=== PATIENT | female | born 1995 | race Caucasian/White ===

== ENCOUNTER 2017-06-29 14:33 | Emergency (ER) | payer BC ==
--- NOTE | 2017-06-29 17:17 | UC ---
Lower Extremity/Ankle HPI - HPI Summary HPI Summary: injured left foot when she slipped down the stairs a couple of hours ago - History of Current Complaint Chief Complaint: UCLowerExtremity Stated Complaint: RIGHT FOOT PAIN Time Seen by Provider: 06/29/17 17:12 Hx Obtained From: Patient Hx Last Menstrual Period: 06/05/17 ?: No Onset/Duration: Sudden Onset, Lasting Hours, Still Present Severity Initially: Moderate Severity Currently: Moderate Pain Intensity: 6 Aggravating Factor(s): Standing, Ambulation Alleviating Factor(s): Rest, Elevation Able to Bear Weight: Yes - with pain - Allergies/Home Medications Allergies/Adverse Reactions: Allergies Allergy/AdvReac Type Severity Reaction Status Date / Time No Known Allergies Allergy Verified 06/29/17 15:30 PMH/Surg Hx/FS Hx/Imm Hx Previously Healthy: Yes - Surgical History Surgical History: Yes Surgery Procedure, Year, and Place: APPENDECTOMY - Family History Known Family History: Positive: Diabetes Family History: FHx of CA - Social History Occupation: Employed Full-time Lives: With Family Alcohol Use: Occasionally Substance Use Type: None Smoking Status (MU): Never Smoked Tobacco Review of Systems Constitutional: Negative Skin: Negative Eyes: Negative ENT: Negative Respiratory: Negative Cardiovascular: Negative Gastrointestinal: Negative Genitourinary: Negative Motor: Negative Neurovascular: Negative Musculoskeletal: Arthralgia - right lateral foot Neurological: Negative Psychological: Negative Is Patient Immunocompromised?: No All Other Systems Reviewed And Are Negative: Yes Physical Exam Triage Information Reviewed: Yes Appearance: Well-Appearing, No Pain Distress, Well-Nourished Vital Signs: Initial Vital Signs Temp 98.1 F 06/29/17 15:31 Pulse 82 06/29/17 15:31 Resp 16 06/29/17 15:31 BP 124/79 06/29/17 15:31 Pulse Ox 100 06/29/17 15:31 Vital Signs Reviewed: Yes Eye Exam: Normal Eyes: Positive: Conjunctiva Clear ENT Exam: Normal ENT: Positive: Normal ENT inspection, Hearing grossly normal, Pharynx normal, Tonsillar swelling, Tonsillar exudate. Negative: Nasal congestion, Nasal drainage, Trismus, Muffled voice, Hoarse voice Dental Exam: Normal Neck exam: Normal Neck: Positive: Supple, Nontender Respiratory Exam: Normal Respiratory: Positive: Chest non-tender, No respiratory distress, No accessory muscle use Cardiovascular Exam: Normal Cardiovascular: Positive: RRR, Pulses Normal, Brisk Capillary Refill Musculoskeletal Exam: Normal Musculoskeletal: Positive: Strength Intact, ROM Intact, Edema @ - right laateral foot Neurological Exam: Normal Neurological: Positive: Alert, Muscle Tone Normal Psychological Exam: Normal Skin Exam: Normal Diagnostics - Radiology No standard instances Xray Interpretation: Positive (See Comments) - non displaced fifth metatarsal fracture right foot Radiology Interpretation Completed By: ED Physician, Radiologist Re-Evaluation - Re-Evaluation First Eval Change: Unchanged - cam boot Lower Extremity Course/Dx - Course Course Of Treatment: rice, crutches cam boot, ibuprofen follow with orthopedic MD this week - Differential Dx/Diagnosis Provider Diagnoses: non displlaced 5th metatarsal fracture right foot Discharge - Discharge Plan Condition: Stable Disposition: HOME Patient Education Materials: Crutch Instructions (ED), Foot Fracture in Adults (ED), RICE Therapy (ED) Referrals: Corby Penaloza MD [Medical Doctor] - 4 Days
--- NOTE | 2017-06-29 18:04 | RAD ---
INDICATION: Lateral right foot pain after a fall COMPARISON: None. TECHNIQUE: 3 views of the right foot were obtained. FINDINGS: There is a nondisplaced fracture horizontally oriented at the proximal metaphysis of the right fifth metatarsal. The remaining visualized bones are adequately corticated bones and properly aligned. Joint spaces appear maintained. IMPRESSION: NONDISPLACED PROXIMAL RIGHT FIFTH METATARSAL FRACTURE
[2017-06-29 18:08] VITALS: BP 131/87
== END 2017-06-29 18:08 | disposition home or self-care (01) ==
LOC: UCCORT 14:33
DX: S92.354A Nondisplaced fracture of fifth metatarsal bone, right foot, initial encounter for closed fracture (principal); W01.0XXA Fall on same level from slipping, tripping and stumbling without subsequent striking against object, initial encounter; Y93.9 Activity, unspecified; Y92.9 Unspecified place or not applicable
CPT/HCPCS: 99213; G0463

== ENCOUNTER 2018-12-27 19:02 | Emergency (ER) | payer BC, OTHER ==
--- NOTE | 2018-12-27 22:56 | ED ---
Neurological HPI - HPI Summary HPI Summary: This patient is a 23 year old F presenting to ED with a chief complaint of left- sided tongue numbness since 2-3 days ago that progressed to left facial numbness today at 1730. She cannot taste anything on the left side of her tongue. The face numbness is described as tingly and warm. Per caregiver, the left side of the face was slightly saggy. Patient noticed left-sided facial weakness and eye twitching. Patient us currently 18 weeks . The patient rates the pain 4/10 in severity. Symptoms aggravated by nothing. Symptoms alleviated by nothing. Patient reports neck pain. Patient denies arm and leg weakness. No PMHx of DM, HTN, HLD. FHx of DM. PSHx of appendectomy. Patient does not smoke or use substances but drinks alcohol. - History of Current Complaint Chief Complaint: EDNeurologicalDeficit Stated Complaint: , CANT FEEL/MOVE FACE PER PT Time Seen by Provider: 12/27/18 22:44 Hx Obtained From: Patient Onset/Duration: Started days ago - 2-3 days ago tongue numbness, Still Present, Worse Since - Today at 1730 left face numbness Neurological Deficit Location: Facial - Left Pain Intensity: 4 Pain Scale Used: 0-10 Numeric Character: Numbness/Tingling - Left-sided of face Aggravating: Nothing Alleviating: Nothing Associated Signs and Symptoms: Positive: Numbness - Left-sided, Neck Pain/ Stiffness - Allergy/Home Medications Allergies/Adverse Reactions: Allergies Allergy/AdvReac Type Severity Reaction Status Date / Time No Known Allergies Allergy Verified 12/27/18 19:14 Home Medications: Home Medications Magnesium 200 mg PO DAILY 12/27/18 [History Confirmed 12/27/18] PMH/Surg Hx/FS Hx/Imm Hx Endocrine/Hematology History: Denies: Hx Diabetes Cardiovascular History: Denies: Hx Hypercholesterolemia, Hx Hypertension - Surgical History Surgery Procedure, Year, and Place: APPENDECTOMY Infectious Disease History: No Infectious Disease History: Denies: Traveled Outside the [place] in Last 30 Days - Family History Known Family History: Positive: Diabetes Family History: FHx of CA - Social History Alcohol Use: Occasionally Hx Substance Use: No Substance Use Type: Reports: None Hx Tobacco Use: No Smoking Status (MU): Never Smoked Tobacco Review of Systems Musculoskeletal: Other - Neck pain Neurological: Negative - Arm and leg weakness, Other - Left eye twitching Positive: Weakness - Left-sided facial weakness, Numbness - Left-sided tongue numbness All Other Systems Reviewed And Are Negative: Yes Physical Exam - Summary Physical Exam Summary: Appearance:Well-appearing, Well-nourished, lying in bed comfortably Skin:Warm, dry, no obvious rash Eyes:sclera anicteric, no conjunctival pallor ENT:mucous membranes moist, pharynx appears normal Neck:Supple, nontender Respiratory:Clear to auscultation, no signs of respiratory distress Cardiovascular:Normal S1, S2. No murmurs. Normal distal pulses in tibial and radial bilaterally. Abdomen:Soft, nontender, normal active bowel sounds present Musculoskeletal:Normal, Strength/ROM Intact, Motor function in all 4 extremities is normal and symmetric. There is no rigidity or tremor noted. Neurological:A&Ox3, awake and alert, mentation is normal, speech is fluent and appropriate, Level of consciousness nml. The patient is alert and oriented. Cranial nerves are grossly intact. Gaze is conjugate and without nystagmus. Peripheral vision is intact to confrontation. There are no gross sensory abnormalities to light touch. There is no truncal or fine motor ataxia. Gait is normal. No sign of facial paresis. Psychiatric:affect is normal, does not appear anxious or depressed Triage Information Reviewed: Yes Vital Signs On Initial Exam: Initial Vitals Temp Pulse Resp BP Pulse Ox 97.1 F 117 18 135/96 100 12/27/18 19:10 12/27/18 19:10 12/27/18 19:10 12/27/18 19:10 12/27/18 19:10 Vital Signs Reviewed: Yes Diagnostics - Vital Signs Vital Signs Temp Pulse Resp BP Pulse Ox 12/27/18 21:50 97.9 F 100 16 133/96 100 12/27/18 19:10 97.1 F 117 18 135/96 100 - Laboratory Lab Statement: Any lab studies that have been ordered have been reviewed, and results considered in the medical decision making process. Re-Evaluation - Re-Evaluation First Eval Re-Evaluation Time: 23:26 Comment: Discussed neurology call with patient. 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 Patient understands and agrees with this plan. Course/Dx - Course Course Of Treatment: This patient is a 23 year old F presenting to ED with a chief complaint of left-sided tongue numbness since 2-3 days ago that progressed to left facial numbness today at 1730. Discussed patient case with Dr. Quarles, neurologist, who agrees with dx of Cosby's palsy. Dr. Quarles will see the patient in his office. 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 Patient understands and agrees with this plan. - Diagnoses Provider Diagnoses: Cosby palsy - Physician Notifications Discussed Care Of Patient With: Mao Quarles Time Discussed With Above Provider: 23:20 Instructed by Provider To: Other - Discussed patient case with Dr. Quarles, neurologist, who agrees with dx of Cosby's palsy. Dr. Quarles will see the patient in his office. Discharge - Sign-Out/Discharge Documenting (check all that apply): Patient Departure - Discharge Patient Received Moderate/Deep Sedation with Procedure: No - Discharge Plan Condition: Stable Disposition: HOME Patient Education Materials: Cosby Palsy (ED) Referrals: Mao Quarles MD [Medical Doctor] - Additional Instructions: Dr. Quarles took down your contact information and will have his staff reach out to you on Saturday to arrange office followup. It is difficult to say if the facial weakness is going to recur, but I would not be terribly surprised if it did. As long as it does not become much more severe than it was and there are no symptoms below the neck that would not be a cause for alarm, but if the weakness becomes so severe that you cannot close your eye we should see you back. - Billing Disposition and Condition Condition: STABLE Disposition: Home - Attestation Statements Document Initiated by Joelle: Yes Documenting Scribe: Ethan Meade Provider For Whom Joelle is Documenting (Include Credential): Lonny Iqbal MD [facility] Attestation: I, Ethan Meade, scribed for Lonny Iqbal MD on 12/29/18 at 0120. Scribe Documentation Reviewed: Yes Provider Attestation: The documentation as recorded by the Ethan elaine accurately reflects the service I personally performed and the decisions made by me, Lonny Iqbal MD Status of [facility] Document: Viewed
[2018-12-27 23:47] VITALS: BP 119/64
== END 2018-12-27 23:46 | disposition home or self-care (01) ==
LOC: ED 19:02
DX: O26.92 Pregnancy related conditions, unspecified, second trimester (principal); G51.0 Bell's palsy; R20.0 Anesthesia of skin; Z3A.18 18 weeks gestation of pregnancy
CPT/HCPCS: 99282

== ENCOUNTER 2019-06-08 01:04 | Inpatient (IN) | payer BC, OTHER ==
[2019-06-08] MEDS ORDERED: Lactated Ringers 1000 ML Bag* 1,000 ML IV ONE ×2 (01:37→03:21)
[2019-06-08] MEDS ORDERED: Penicillin G Potassium IV* 5,000,000 UNITS in NS 0.9% 100 ML* 100 ML IVPB ONE (01:37)
[2019-06-08] MEDS ORDERED: OBEPIDURAL* 250 ML EPIDURAL ONE (02:17)
[2019-06-08] MEDS ORDERED: fentaNYL* 50 MCG/ML 2 ML VIAL (100 MCG VIAL) ONE (02:17)
--- NOTE | 2019-06-08 02:20 | HP ---
General Information - Reason for Visit IUP at 40-01/02 in labor - General Information Maternal Age: 24 Grav: 1 Para: 0 SAB: 0 IEA: 0 Estimated Due Date: 06/02/19 Determined By: LMP Gestational Age in Weeks/Days: 40-7 Maternal Blood Type and Rh: A Positive - Results this Serology/RPR Result: Non-Reactive Rubella Result: Immune HBsAg Result: Negative HIV Result: Negative GBS Culture Result: Positive Past Medical History Delivery History: See Records Delivery History Comment: Primip Pertinent Past Medical History: See Records Past Medical History Comment: Cosby's Palsy (12/2018) Resolved with course of prednisone Pertinent Past Surgical History: See Records Past Surgical History Comment: 11/2004 Appendectomy Pertinent Family History: See Records Family History Comment: Mother: HTN MGM: Heart disease, DM. , Pulmonary Embolus - Antepartal Records Antepartal Records: Reviewed, Complicated by: - GDM - A1, GBS +, Obesity, Cosby's Palsy Review of Systems Constitutional: Uncomfortable - with UCs CV Complaint: No Respiratory: Shortness of Breath: No Gastrointestinal: No Nausea/Vomiting, Normal Bowel Movement Genitourinary: No Dysuria, No Bleeding, No Leaking Fluid Musculoskeletal: No Epigastric Pain, Contractions Neurological: No Headache, No Visual Changes Movement: Normal Exam Allergies/Adverse Reactions: Allergies No Known Allergies Allergy (Verified 06/08/19 01:25) BP 136/96 Repeat 139/85 HR 114 initially Repeat 85 T 97.6 RR 18 SpO2 100% on RA - Measurements Height: 5 ft 7 in Weight: 213 lb Weight in lbs: [phone] Body Mass Index (BMI): 33.3 Pre- Weight: 209 lb Weight Gained This : 4 lbs and 0 ozs - Exam Breast: Breast Exam Deferred CVA: No CVA Tenderness Extremities: No Edema Heart: Normal Rhythm/Heart Sounds HEENT: No Significant Findings Lungs: Clear Bilaterally Rectal: Rectal Exam Deferred Thyroid: No Thyromegaly - Abdominal Exam Abdomen Exam: Non-Tender - Ultrasound/Biophysical Profile Ultrasound Status: Not Done Targeted Exam Findings See L&D Outpatient Visit Provider Note for Findings: N/A Estimated Weight: EFW 8lbs by Naz (5lbs 14oz, 38%tile by sono at 35-6 /7) Cervical Exam: 4cm, 5cm Effacement: 90% Station: -1 Presenting Part: Vertex Membrane Status: Intact Sterile Speculum Exam: Not done Bleeding/Discharge: Bloody Show EFM Findings - External Monitor Findings Baseline Heart Rate: 125 External Monitor Findings: Accelerations Present, No Pattern of Variable or Late Decelerations, Variability Moderate, Baseline Stable External Monitor Findings Comment: No evidence of metabolic acidemia Contractions: Regular, Moderate, Strong Contraction Frequency: q 2-4 min Assessment/Plan - Assessment IUP at 40-6/7 in active labor No evidence of metabolic acidemia GBS+ Desires labor epidural Elevated BP of unknown significance - Obstetrical Risk Factors Obstetrical Risk Factors: GBS Positive, Post-Dates, Obesity, Gestational Diabetes - A1 - Plan Plan: Admit - Anticipate Vaginal Delivery Plan Comment: Pt admitted. IV placed and BP labs drawn. GBS prophylaxis initiated. Counseled for labor epidural and anesthesia paged for consult. Anticipate progression to . - Date/Time of Admission Date of Admission: 06/08/19 Time of Admission: 01:42
[2019-06-08 02:21] LABS: Urine Benzodiazepine Screen None Detected (None Detect); Urine Opiates Screen None Detected (None Detect)
[2019-06-08 02:22] LABS: Albumin 3.5 g/dL (3.2-5.2); Albumin/Globulin Ratio 1.1 (1-3); BUN/Creatinine Ratio 15.2 (8-20); Calcium 10.1 mg/dL (8.6-10.3); EGFR Non-African American 109.1 (>60); Globulin 3.1 g/dL (2-4); Potassium 3.7 mmol/L (3.5-5.0); Total Bilirubin 0.3 mg/dL (0.2-1.0); Total Protein 6.6 g/dL (6.4-8.9); Uric Acid 6.2 mg/dL (2.3-6.6)
[2019-06-08 02:40] LABS: ABS Eosinophils 0.1 10^3/ul (0-0.6); ABS Lymphocytes 2.1 10^3/ul (1.0-4.8); ABS Monocytes 0.9 10^3/ul (0-0.8); ABS Neutrophils 7.5 10^3/ul (1.5-7.7); Eosinophil % 0.8 %; Hematocrit 38 % (35-47); Hemoglobin 12.7 g/dL (12.0-16.0); Lymphocyte % 19.7 %; Mean Corpuscular HGB Conc 33 g/dL (31-36); Mean Corpuscular Hemoglobin 31 pg (27-31); Mean Corpuscular Volume 92 fL (80-97); Mean Platelet Volume 10.1 fL (7.4-10.4); Nucleated Red Blood Cells % 0.1; Platelet Count 159 10^3/uL (150-450); Red Blood Count 4.15 10^6 /uL (3.70-4.87); Red Cell Distribution Width 13 % (10-15); White Blood Count 10.6 10^3/uL (3.5-10.8)
[2019-06-08] MEDS ORDERED: Calcium Carbonate CHEW TAB* 500 MG (TUMS) PO PRN (03:09)
[2019-06-08] MEDS ORDERED: Lidocaine 2% w/ EPI 1:200,000* 20 ML SDV VIAL ONE (03:16)
[2019-06-08] MEDS ORDERED: Lactated Ringers 1000 ML Bag* 500 ML IV PRN ×2 (03:21)
[2019-06-08] MEDS ORDERED: Famotidine TAB* 20 MG PO PRN (03:21)
[2019-06-08] MEDS ORDERED: Sodium Citrate/Citric Acid* 15 ML UDC PO PRN (03:21)
[2019-06-08] MEDS ORDERED: Phenylephrine 40 MCG/ML SYRINGE IV PUSH PRN ×2 (03:21)
[2019-06-08] MEDS ORDERED: OBEPIDURAL* 250 ML EPIDURAL SCH (04:00)
[2019-06-08] MEDS ORDERED: Lactated Ringers 1000 ML Bag* 1,000 ML IV SCH ×2 (04:00)
[2019-06-08] MEDS ORDERED: Penicillin G Potassium IV* 2,500,000 UNITS in NS 0.9% 100 ML* 100 ML IVPB SCH (06:00)
--- NOTE | 2019-06-08 06:37 | PN ---
Progress Note - Progress Note Date of Service: 06/08/19 Note: S: Pt very comfortable s/p epidural placement. Verbalizes a lot of anxieties about sensations with pushing, how she'll know what to do. Looking for reassurance and support. FOB and her mother at bedside talking to her and keeping her distracted. Overall impression of coping is good. O: BP 134/96 after discussing VE prior BP 124/87 HR 94 T 97.6 FHT 120bpm. Moderate variability. +Accels. No decels UCs q 3-4 VE 8cm/100%/vtx -1, BBOW A: IUP at 40-6/7 in active labor No evidence of metabolic acidemia GBS+, 2nd dose of abx given GDM - A1 Anxiety, responds well to bedside support Elevated BP of unknown significance with normal labs P: Teaching about what to expect with advancing labor. Reassurance provided. Close monitoring of maternal/ status. Report to Craig Majano CNM who will be assuming care at 0800.
--- NOTE | 2019-06-08 07:32 | PN ---
Progress Note - Progress Note Date of Service: 06/08/19 Note: S: Pt feeling a window in her left lower abd, otherwise comfortable. Family supportive, at bedside. O: VS:BP 110/83, HR102, T99.8 FHTs: 125 moderate variability, no decels, + accels 9.5cm/100%/vtx/0 station AROM with moderate clear fluid, pt tolerated well. A: IUP @40 / No evidence of acidemia GBS+, 2nd dose ABX complete GDM A1 P: Counseled for amniotomy, pt agreed. Encouraged frequent position changes with use of peanut ball. discussed postioning top help with window and use of bolus button. Close monitoring of maternal/ status. anticipate trial of pushing soon.
[2019-06-08] MEDS ORDERED: Ropivacaine (OR use only) 2 MG/ML 10 ML ONE (07:53)
[2019-06-08] MEDS ORDERED: Oxytocin in LR* 20 UNITS/1,000 ML BAG IVPB ONE (09:04)
[2019-06-08] MEDS ORDERED: Glycerin ADULT SUPP PR PRN (10:23)
[2019-06-08] MEDS ORDERED: Witch Hazel PAD* JAR TOPICAL PRN (10:23)
[2019-06-08] MEDS ORDERED: Dibucaine 1% 28.35 GM TUBE PR PRN (10:23)
[2019-06-08] MEDS ORDERED: Misoprostol TAB* 200 MCG ONE (10:37)
--- NOTE | 2019-06-08 10:37 | PROCNOTE ---
<Bob Torres - Last Filed: 06/08/19 10:30> [facility] OB: Delivery Note - Nursery Level of Nursery: Regular/Bedside - Perineum Perineal Injury: 1st Degree Perineal Injury Comment: R Labial abrasion without repair Perineal Repair: Repair done by LINDSAY Sahni - Events Delivery Events of Note: Pitocin Only After Delivery, Full Course of Antibiotics - Additional Delivery Notes Additional Delivery Notes: IUP @40 6/7 arrived in spontaneous active labor at 4-5 cm. GBS+ with two rounds of ABX prior to delivery. Received epidural as desired, AROM with clear fluid. Spontaneous desire to push. Length of labor 8 hrs 52 mins, pushed for 1hr 5 mins. Baby born OA to CARINE at 0952 with terminal meconium delivered to maternal abd. Spontaneous breathing, tactile stim, APGARs 9, 10. Placenta delivered with gentle cord traction, Girish, complete, 3VC. 1st degree repair, pt tolerated well, small right labial abrasion without repair. Bleeding initially controlled with fundal massage. Trickle noted during repair with small clots out initiated Pitocin in LR IV followed by Misoprostol SC s/p repair. EBL 450mL. Weight 8lb 7oz. FOB supportive throughout at bedside, family in s/p . Mother and baby stable, initiating . <Keerthi Majano - Last Filed: 06/11/19 13:57> [facility] OB: Delivery Note - Perineum Perineal Repair: Repair done by LINDSAY Sahni - Correction: Keerthi Majano CNM - Additional Delivery Notes Additional Delivery Notes: Provider has been updated in system to reflect Keerthi Majano CNM as attending provider, not LINDSAY Jane.
[2019-06-08] MEDS ORDERED: Oxytocin in LR* 20 UNITS/1,000 ML BAG IVPB SCH (11:00)
[2019-06-08] MEDS ORDERED: Ammonia Inhalant* 1 EA AMP ONE (11:50)
[2019-06-08] MEDS: Acetaminophen TAB* 325 MG PO PRN ×2 (12:11→18:44)
[2019-06-08] MEDS ORDERED: Lidocaine 1% INJ* 10 MG/ML 30 ML SDV ONE (12:24)
[2019-06-08] MEDS: Ibuprofen TAB* 600 MG PO PRN (13:56)
[2019-06-08] MEDS: Docusate CAP* 100 MG PO SCH ×2 (13:57→21:22)
[2019-06-09] MEDS: Ibuprofen TAB* 600 MG PO PRN ×3 (03:37→17:08)
[2019-06-09] MEDS: Docusate CAP* 100 MG PO SCH ×3 (07:30→21:17)
[2019-06-09] MEDS: Acetaminophen TAB* 325 MG PO PRN ×3 (07:30→21:19)
[2019-06-09 07:42] LABS: ABS Eosinophils 0.1 10^3/ul (0-0.6); ABS Monocytes 0.4 10^3/ul (0-0.8); ABS Neutrophils 4.7 10^3/ul (1.5-7.7); Eosinophil % 1.2 %; Hematocrit 27 % (35-47); Hemoglobin 9.1 g/dL (12.0-16.0); Lymphocyte % 27.7 %; Mean Corpuscular HGB Conc 34 g/dL (31-36); Mean Corpuscular Hemoglobin 31 pg (27-31); Mean Corpuscular Volume 92 fL (80-97); Mean Platelet Volume 9.3 fL (7.4-10.4); Platelet Count 118 10^3/uL (150-450); Red Blood Count 2.91 10^6 /uL (3.70-4.87); Red Cell Distribution Width 13 % (10-15); White Blood Count 7.3 10^3/uL (3.5-10.8)
[2019-06-09] MEDS: Ferrous Gluconate TAB* 324 MG TAB PO SCH ×2 (07:50→21:17)
[2019-06-10 08:25] VITALS: BP 124/82
[2019-06-10] MEDS: Ferrous Gluconate TAB* 324 MG TAB PO SCH (09:22)
[2019-06-10] MEDS: Ibuprofen TAB* 600 MG PO PRN (09:22)
[2019-06-10] MEDS: Docusate CAP* 100 MG PO SCH (09:23)
== END 2019-06-10 11:39 | disposition home or self-care (01) | DRG 807 ==
LOC: MCHOBOUT 01:04 → MCHOB 01:42
PROVIDERS: ADMIT Midwife; ATTEND Midwife
PROC: 10E0XZZ Delivery of Products of Conception, External Approach (ICD-10-PCS; principal; 2019-06-08)
PROC: 10907ZC Drainage of Amniotic Fluid, Therapeutic from Products of Conception, Via Natural or Artificial Opening (ICD-10-PCS; 2019-06-08)
PROC: 0HQ9XZZ Repair Perineum Skin, External Approach (ICD-10-PCS; 2019-06-08)
DX: O48.0 Post-term pregnancy (principal); Z37.0 Single live birth; O70.0 First degree perineal laceration during delivery; O77.0 Labor and delivery complicated by meconium in amniotic fluid; O99.824 Streptococcus B carrier state complicating childbirth; O99.214 Obesity complicating childbirth; O99.344 Other mental disorders complicating childbirth; F41.9 Anxiety disorder, unspecified; O24.420 Gestational diabetes mellitus in childbirth, diet controlled; O75.89 Other specified complications of labor and delivery; G51.0 Bell's palsy; O90.81 Anemia of the puerperium; D64.9 Anemia, unspecified; Z3A.40 40 weeks gestation of pregnancy
CPT/HCPCS: 36415; 80053; 80307; 84550; 85025; 86850; 86900; 86901; A9270-GY; J2540; J2795; J3010

== ENCOUNTER 2019-06-11 15:26 | Emergency (ER) | payer BC, OTHER ==
--- OUTSIDE RECORDS SUMMARY | 2019-06-11 15:40 | XMS REPORT | Continuity of Care Document ---
:1995 External Reference #:[id number] Author Name Shea Camargo MD (transmitted by agent of provider Codi Rome) Address [address] [place] [address] Care Team Providers Name Role Phone Tami Iverson MD Care Team Information [place] [phone] Problems Description No Active Problems Social History Type Date Description Comments Sex Unknown Tobacco Use Start: Unknown Never Smoked Cigarettes Smoking Status Reviewed: 06/11/19 Never Smoked Cigarettes ETOH Use Alcohol Use Prior To 4 beers/week, stopped with Recreational Drug Use Does Not Use Drugs Allergies, Adverse Reactions, Alerts Description No Known Drug Allergies Medications Active Medications SIG Qnty Indications Ordering Date Provider Blood Glucose use in the 1Monitor Funmi Swann 03/26/2019 Monitoring System morning before AMINA Iraheta eating, then 2 W/Device Kit hours after every meal Blood Glucose Test use as directed 1Box Funmi Swann 03/26/2019 Strips Premium AMINA Iraheta Strips Lancet Device use with lancets 100units Funmi Swann 03/26/2019 Misc and blood glucose AMINA Iraheta monitor 4 times daily PNV-Dha 1 by mouth every Unknown day 27-0.6-0.4-300mg Capsules Magnesium Unknown 400mg Tablets Medrol Unknown 2mg Tablets Immunizations Description No Information Available Vital Signs Date Vital Result Comment 06/11/2019 2:39pm Height 65 inches 5'5" 1 Parity 1 11/12/2018 1:17pm BP Systolic 120 mmHg BP Diastolic 74 mmHg Height 65 inches 5'5" Weight 209.00 lb BMI (Body Mass Index) 34.8 kg/m2 Last Menstrual Period [id number] 1 Parity 0 Results Test Acquired Date Facility Test Result H/L Range Note Laboratory test 05/11/2019 [facility] Genital For SEE RESULT 1 [place] [address] GRP B Strep BELOW [phone] Only Comp Metabolic 05/11/2019 [facility] Sodium 139 mmol/L Normal 135-145 [place] [id number] [phone] Potassium 4.4 mmol/L Normal 3.5-5.0 Chloride 104 mmol/L Normal 101-111 Co2 Carbon Dioxide 21 mmol/L Low 22-32 Anion Gap 14 mmol/L High 2-11 Glucose 85 mg/dL Normal 70-100 Blood Urea Nitrogen 9 mg/dL Normal 6-24 Creatinine 0.59 mg/dL Normal 0.51-0.95 BUN/Creatinine Ratio 15.3 Normal 8-20 Calcium 9.5 mg/dL Normal 8.6-10.3 Total Protein 5.9 g/dL Low 6.4-8.9 Albumin 3.5 g/dL Normal 3.2-5.2 Globulin 2.4 g/dL Normal 2-4 Albumin/Globulin Ratio 1.5 Normal 1-3 Total Bilirubin 0.40 mg/dL Normal 0.2-1.0 Alkaline Phosphatase 107 U/L High 34-104 Alt 13 U/L Normal 7-52 Ast 18 U/L Normal 13-39 Egfr Non- 124.2 >60 Egfr 150.3 >60 2 Laboratory test 05/11/2019 [facility] Uric Acid 5.3 mg/dL Normal 2.3-6.6 3 [place] [id number] [phone] CBC With No Diff 05/11/2019 [facility] White 11.4 High 3.5- 10.8 [place] [address] Blood 10^3/uL [phone] Count Red Blood Count 3.89 10^6/uL Normal 3.70-4.87 Hemoglobin 12.1 g/dL Normal 12.0-16.0 Hematocrit 36 % Normal 35-47 Mean Corpuscular Volume 93 fL Normal 80-97 Mean Corpuscular Hemoglobin 31 pg Normal 27-31 Mean Corpuscular HGB Conc 33 g/dL Normal 31-36 Red Cell Distribution Width 13 % Normal 10-15 Platelet Count 174 10^3/uL Normal 150-450 Mean Platelet Volume 9.6 fL Normal 7.4-10.4 Laboratory test 05/11/2019 [facility] Bile Acid 5 mcmol/L <= 10 4 [place] [address] [phone] Glucose 03/24/2019 [facility] GTT 3HR (SEE NOTE) Low 5 Tolerance 3HR [place] [address] Gestational Gestational [phone] Laboratory test 03/18/2019 [facility] Glucose 1 HR 163 mg/dL High 70-160 6 [place] [address] Post Prandial [phone] CBC With No 03/18/2019 [facility] White Blood 12.2 High 3.5- 10.8 [place] [address] Count 10^3/uL [phone] Red Blood Count 3.60 10^6/uL Low 3.70-4.87 Hemoglobin 11.6 g/dL Low 12.0-16.0 Hematocrit 34 % Low 35-47 Mean Corpuscular Volume 95 fL Normal 80-97 Mean Corpuscular Hemoglobin 32 pg High 27-31 Mean Corpuscular HGB Conc 34 g/dL Normal 31-36 Red Cell Distribution Width 13 % Normal 10-15 Platelet Count 231 10^3/uL Normal 150-450 Mean Platelet Volume 8.7 fL Normal 7.4-10.4 Urine Drug 12/10/2018 [facility] Urine Amphetamine Negative ng/ mL 7 Comp 20 [place] [address] [phone] Urine Barbiturates Negative ng/mL 8 Urine Benzodiazepines Negative ng/mL 9 Urine Cocaine Negative ng/mL 10 Urine Phencyclidine Negative ng/mL Cutoff: 25 Urine Tetrahydrocannabinol Negative ng/mL Cutoff: 50 11 Creatinine, Urine 152.4 mg/dL Specific [place] 1.007 pH 7.9 Oxidants Negative 12 Adulterants Comment Normal Codeine, Ur Not Detected ng/mL Cutoff: 25 13 Lakiqti-7-nuzs-glucuronide, Ur Not Detected ng/mL 14 Morphine, Ur Not Detected ng/mL Cutoff: 25 15 Kjzdvedk-7-kgaz-glucuronide, U Not Detected ng/mL 16 6-monoacetylmorphine, Ur Not Detected ng/mL Cutoff: 25 17 Hydrocodone, Ur Not Detected ng/mL Cutoff: 25 18 Norhydrocodone, Ur Not Detected ng/mL Cutoff: 25 19 Dihydrocodeine, Ur Not Detected ng/mL Cutoff: 25 20 Hydromorphone, Ur Not Detected ng/mL Cutoff: 25 21 Svlyfvkuojqqa4grrwcvyucquvjnj Not Detected ng/mL 22 Oxycodone, Ur Not Detected ng/mL Cutoff: 25 23 Noroxycodone, Ur Not Detected ng/mL Cutoff: 25 24 Oxymorphone, Ur Not Detected ng/mL Cutoff: 25 25 Fqswfnlrsnb-0-atvw-glucuronide Not Detected ng/mL 26 Noroxymorphone, Ur Not Detected ng/mL Cutoff: 25 27 Fentanyl, Ur Not Detected ng/mL Cutoff: 2 28 Norfentanyl, Ur Not Detected ng/mL Cutoff: 2 29 Meperidine, Ur Not Detected ng/mL Cutoff: 25 30 Normeperidine, Ur Not Detected ng/mL Cutoff: 25 31 Naloxone, Ur Not Detected ng/mL Cutoff: 25 32 Sschnyzw-7-nvhw-glucuronide, U Not Detected ng/mL 33 Methadone, Ur Not Detected ng/mL Cutoff: 25 34 Eddp, Ur Not Detected ng/mL Cutoff: 25 35 Propoxyphene, Ur Not Detected ng/mL Cutoff: 25 36 Norpropoxyphene, Ur Not Detected ng/mL Cutoff: 25 37 Tramadol, Ur Not Detected ng/mL Cutoff: 25 38 O-desmethyltramadol, Ur Not Detected ng/mL Cutoff: 25 39 Tapentadol, Ur Not Detected ng/mL Cutoff: 25 40 N-desmethyltapentadol, Ur Not Detected ng/mL Cutoff: 50 41 Wtfugddbur-bxrm-gtbrcmhuigv, U Not Detected ng/mL 42 Buprenorphine, Ur Not Detected ng/mL Cutoff: 5 43 Norbuprenorphine, Ur Not Detected ng/mL Cutoff: 5 44 Norbuprenorphine glucuronide Not Detected ng/mL Cutoff: 20 45 Opioid Interpretation See Comment 46 1 SEE RESULT BELOW Name: DEREK BOWMAN : [address]: Jacki Ford [facility] Acct: [id number] Unit: [id number] AGE: 24 Location: [facility] Re05/11/19 SEX: F Status: REG REF SPEC: [id number] SHARIF: 05/11/[address]: Jacki ESCALERA REQ: [id number] RECD: 05/11/19 STATUS: COMP _ SOURCE: MARYELLEN/PRASAD/RE SPDESC: ORDERED: Nicola Handy COMMENTS: [id number] QUERIES: Is Patient Penicillin Allergic? N Is patient penicillin allergic and/or sensitivities needed? N Provider Requisition # [id number] Procedure Result Reported Site Group B Strep Culture Screen Final 05/13/19- 1053 ML Group B Strep Screen Positive Organism 1 STREP GROUP B Susceptibility testing of penicillins and other B-lactams approved by FDA for treatment of Streptococcus pyogenes (Group A Strep) and Streptococcus agalactiae (Group B Strep) is not necessary for clinical purposes and need not be done routinely, since as with vancomycin, resistant strains have not been recognized. (CLSI A796-T40;p.66) Positive isolates will be saved for one week. Please call the Microbiology Laboratory if further susceptibility testing is needed. * ML - Main Lab . END OF REPORT DEPARTMENT OF PATHOLOGY, [address] [place] [address] Reed Marie M.D. Director [facility] # [id number] 2 Because ethnic data is not always readily available, this report includes an eGFR for both -Americans and non- Americans. The National Kidney Disease Education Program (NKDEP) does not endorse the use of the MDRD equation for patients that are not between the ages of 18 and 70, are , have extremes of body size, muscle mass, or nutritional status, or are non- or non-. According to the National Kidney Foundation, irrespective of diagnosis, the stage of the disease is based on the level of kidney function: Stage Description GFR(mL/min/1.73 m(2)) 1 Kidney damage with normal or decreased GFR 90 2 Kidney damage with mild decrease in GFR 60-89 3 Moderate decrease in GFR 30-59 4 Severe decrease in GFR 15-29 5 Kidney failure <15 (or dialysis) 3 [id number] 4 Test Performed by: [address] [address] Clutch Rebuilder: Mehul Ellington M.D. Ph.D.; CLIA# [id number] 5 GLU Fast 59 L Col: 03/24/19 1100 GLU 1HR 186 Col: 03/24/19 1200 GLU 2HR 160 Col: 03/24/19 1300 GLU 3HR 149 Col: 03/24/19 1400 GLU Interp Col: 03/24/19 1100 GTT normal ranges for obstetrics per the [employer] (ACOG).Based on 100 gm glucose load: Fasting <95 mg/dl 1hr <180 mg/dl 2hr <155 mg/dl 3hr <140 mg/dl 6 [id number] 7 REFERENCE VALUE Cutoff: 500 8 REFERENCE VALUE Cutoff: 200 9 REFERENCE VALUE Cutoff: 100 10 REFERENCE VALUE Cutoff: 150 11 ADDITIONAL INFORMATION This report is intended for use in clinical monitoring or management of patients. It is not intended for use in employment-related testing. 12 REFERENCE VALUE Cutoff: 200 mg/L 13 Tylenol 3 14 Metabolite of codeine REFERENCE VALUE Cutoff: 100 15 Suyapa Wheat, Contin; Also a minor metabolite (10%) of codeine and can be seen in low concentrations (<2,000 ng/mL) with poppy seed ingestion. 16 Metabolite of morphine REFERENCE VALUE Cutoff: 100 17 Metabolite of heroin 18 Lortab, [place], Vicodin; Also a very minor metabolite of codeine and impurity (<1%) of oxycodone. 19 Metabolite of hydrocodone 20 Metabolite of hydrocodone 21 Dilaudid, Exalgo; Also a metabolite of hydrocodone and a minor (<5%) metabolite of morphine. 22 Metabolite of hydromorphone REFERENCE VALUE Cutoff: 100 23 Endocet, Percocet, Oxycontin 24 Metabolite of oxycodone 25 Numorphan, Opana; Also a metabolite of oxycodone. 26 Metabolite of oxymorphone REFERENCE VALUE Cutoff: 100 27 Metabolite of oxymorphone 28 Actiq, Duragesic, Fent[place] 29 Metabolite of fentanyl 30 Demerol 31 Metabolite of meperidine 32 Narcan 33 Metabolite of naloxone REFERENCE VALUE Cutoff: 100 34 Dolophine 35 Metabolite of methadone 36 Darvon, Darvocet 37 Metabolite of propoxyphene 38 Tradol, Ultram, Ultracet 39 Metabolite of tramadol 40 Nucynta 41 Metabolite of tapentadol 42 Metabolite of tapentadol REFERENCE VALUE Cutoff: 100 43 Buprenex, Suboxone 44 Metabolite of buprenorphine 45 Metabolite of buprenorphine 46 No opioids were detected. The absence of expected drug(s) and/or drug metabolite(s) may indicate non-compliance, altered pharmacokinetics, inappropriate timing of specimen collection relative to drug administration, diluted/adulterated urine, or limitations of testing. ADDITIONAL INFORMATION This test was developed and its performance characteristics determined by [facility] in a manner consistent with CLIA requirements. This test has not been cleared or approved by the U.S. Food and Drug Administration. Test Performed by: [facility] [address] [place] [address] Procedures Date Code Description Status 05/04/2019 49707 Biophysical Profile Without Non Stress Test Completed 05/04/2019 38028 Echography Uterus Follow-Up Or Repeat Completed 02/11/2019 41114 Echography Uterus Limited Completed 01/14/2019 83349 Echography Uterus Complete Completed Medical Devices Description No Information Available Encounters Description No Information Available Assessments Date Code Description Provider 06/01/2019 O24.410 Gestational diabetes mellitus in Tawanna Soriano [facility] , diet controlled 05/25/2019 Z34.03 Encounter for supervision of normal first Keerthi Majano [facility] , third trimester 05/18/2019 O24.410 Gestational diabetes mellitus in Funmi Iraheta [facility] , diet controlled 05/11/2019 O24.410 Gestational diabetes mellitus in Jacki Soaresabrilnic, [facility] , diet controlled 05/04/2019 O24.410 Gestational diabetes mellitus in Luis Ran , , diet controlled 05/04/2019 Z34.03 Encounter for supervision of normal first Keerthi Majano [facility] , third trimester 05/04/2019 O24.410 Gestational diabetes mellitus in Jasonsantiago , diet controlled 04/29/2019 O24.410 Gestational diabetes mellitus in Luciana Paula, [facility] , diet controlled 04/14/2019 O24.410 Gestational diabetes mellitus in Funmi Iraheta [facility] , diet controlled 03/31/2019 O24.410 Gestational diabetes mellitus in Tawanna Soriano, [facility] , diet controlled 03/24/2019 Z36.9 Encounter for screening, Nithin Jaquez MD unspecified 03/24/2019 Z36.9 Encounter for screening, Laboratory unspecified 03/18/2019 Z36.9 Encounter for screening, Nithin Jaquez MD unspecified 03/18/2019 Z36.9 Encounter for screening, Laboratory unspecified 03/18/2019 Z34.03 Encounter for supervision of normal first Keerthi Majano CNM , third trimester 02/11/2019 Z34.82 Encounter for supervision of other normal Hank Haley M.D. , second trimester 02/11/2019 Z34.82 Encounter for suprvsn of normal Jacki Ford CNM , second trimester 02/11/2019 Z34.82 Encounter for suprvsn of normal Ultrasounds , second trimester 01/14/2019 Z36.3 Encounter for screening for Nithin Jaquez MD malformations 01/14/2019 Z34.02 Encntr for suprvsn of normal first preg, Cassandra Bertrand CNM second trimester 01/14/2019 Z36.3 Encounter for screening for Ultrasounds malformations 12/10/2018 Z34.82 Encounter for suprvsn of normal Keerthi Majano CNM , second trimester Plan of Treatment No Information Available Functional Status Description No Information Available Mental Status Description No Information Available Referrals Refer to Reason for Referral Status Appt Date [facility] Closed [facility] [address] [place] [address] [phone] Center inadequate cardiac views Patient Declined [address] [place], [place].[address] [phone]
--- NOTE | 2019-06-11 15:57 | ED ---
Shortness of Breath - HPI Summary HPI Summary: Patient is a 24 y/o F presenting to the ED for a chief complaint of shortness of breath at rest and exertion that began on 06/10/19. Patient is present with her and baby. The shortness of breath began while taking a shower and continued when the patient when to lie down on her bed. Patient had a vaginal delivery on 06/08/19 after which the patient had some blood clots and vaginal bleeding that has decreased since initial onset. She is her and denies any other complications. Patient admits chest pressure and tightness, but denies chest pain. Patient also admits bilateral LE edema after her delivery. Patient also denies bilateral calf or back pain. PMHx is significant for gestational diabetes, but denies PMHx of HTN. FMHx is significant for pulmonary embolism in her grandmother and HTN in her mother. Patient denies tobacco or drug use. She is currently taking vitamins. Patient previously saw her OB and is concerned for her BP which was 136/90 in the office. Patient denies having an influenza vaccination. Patient is crying in the room. - History of Current Complaint Chief Complaint: EDShortnessOfBreath Time Seen by Provider: 06/11/19 15:35 Hx Obtained From: Patient Onset/Duration: Sudden Onset, Still Present Current Severity: Moderate Dyspnea At: Rest Aggravating Factors: Nothing Alleviating Factors: Nothing Associated Signs & Symptoms: Negative, Edema - Bilateral LE since vaginal delivery - Allergy/Home Medications Allergies/Adverse Reactions: Allergies Allergy/AdvReac Type Severity Reaction Status Date / Time No Known Allergies Allergy Verified 06/11/19 15:34 PMH/Surg Hx/FS Hx/Imm Hx Previously Healthy: Yes Endocrine/Hematology History: Denies: Hx Diabetes Cardiovascular History: Denies: Hx Hypercholesterolemia, Hx Hypertension Sensory History: Denies: Hx Legally Blind, Hx Deafness Opthamlomology History: Denies: Hx Legally Blind EENT History: Denies: Hx Deafness - Surgical History Surgical History: Yes Surgery Procedure, Year, and Place: APPENDECTOMY Infectious Disease History: No Infectious Disease History: Denies: Traveled Outside the [place] in Last 30 Days - Family History Known Family History: Positive: Diabetes Family History: FHx of CA - Social History Occupation: Employed Full-time Lives: With Family Alcohol Use: None Hx Substance Use: No Substance Use Type: Reports: None Hx Tobacco Use: No Smoking Status (MU): Never Smoked Tobacco Review of Systems Positive: Other - Positivechest tightness and pressure. Negative: Chest Pain Positive: Shortness Of Breath Positive: other - Positive vaginal bleeding Positive: Edema - Bilateral LE since vaginal delivery. Negative: Myalgia - Bilateral calf or back All Other Systems Reviewed And Are Negative: Yes Physical Exam - Summary Physical Exam Summary: Constitutional: Well-developed, Well-nourished, Alert. In severe distress. Skin: Warm, Dry HENT: Normocephalic; Atraumatic Eyes: Conjunctiva normal. No conjunctival pallor Neck: Musculoskeletal ROM normal neck. (-) JVD, (-) Stridor, (-) Tracheal deviation Cardio: Rhythm regular. Heart sounds normal; Intact distal pulses; The pedal pulses are 2+ and symmetric. Radial pulses are 2+ and symmetric.Tachycardia. Pulmonary/Chest wall: Effort normal. (-) Respiratory distress, (-) Wheezes, (-) Rales Abd: Soft, (-) tenderness, (-) Distension, (-) Guarding, (-) Rebound. Soft non- tender post gravid abdomen, no active vaginal bleeding or hemorrhage. Musculoskeletal: (-) Edema Neuro: Alert, Oriented x3 Psych: Mood and affect Normal Triage Information Reviewed: Yes Vital Signs On Initial Exam: Initial Vitals Temp Pulse Resp BP Pulse Ox 98.7 F 131 16 158/107 99 06/11/19 15:31 06/11/19 15:31 06/11/19 15:31 06/11/19 15:31 06/11/19 15:31 Vital Signs Reviewed: Yes Procedures - Sedation Patient Received Moderate/Deep Sedation with Procedure: No Diagnostics - Vital Signs Vital Signs Temp Pulse Resp BP Pulse Ox 06/11/19 15:31 98.7 F 131 16 158/107 99 - Laboratory Result Diagrams: 06/11/19 16:07 06/11/19 16:07 Lab Statement: Any lab studies that have been ordered have been reviewed, and results considered in the medical decision making process. - CT Chest/Thorax CTA CT Interpretation Completed By: Radiologist Summary of CT Findings: Chest/Thorax CTA IMPRESSION: NO PULMONARY ARTERIAL FILLING DEFECT TO SUGGEST PULMONARY EMBOLISM. Reviewed by Dr. Johnson. - EKG 15:47 Cardiac Rate: NL - 95 BPM EKG Rhythm: Sinus Rhythm ST Segment: Normal Ectopy: None Summary of EKG Findings: An EKG at 15:47 reveals 95 BPM with normal sinus rhythm , nml axis, nml intervals. No STEMI. No acute changes. Low voltage in lead III. No change from prior EKG. Reviewed and interpreted by Dr. Johnson. Re-Evaluation - Re-Evaluation First Eval Re-Evaluation Time: 18:00 Change: Improved Comment: At 18:00, patient is feeling better, SOB is improved. Course/Dx - Course Course Of Treatment: Patient is a 24 y/o F presenting to the ED for a chief complaint of shortness of breath at rest and exertion that began on 06/10/19. Patient is present with her and baby. The shortness of breath began while taking a shower and continued when the patient when to lie down on her bed. Patient had a vaginal delivery on 06/08/19 after which the patient had some blood clots and vaginal bleeding that has decreased since initial onset. She is her infant and denies any other complications. Patient admits chest pressure and tightness, but denies chest pain. Patient also admits bilateral LE edema after her delivery. Patient also denies bilateral calf or back pain. PMHx is significant for gestational diabetes, but denies PMHx of HTN. FMHx is significant for pulmonary embolism in her grandmother and HTN in her mother. Patient denies tobacco or drug use. She is currently taking vitamins. Patient previously saw her OB and is concerned for her BP which was 136/90 in the office. Patient denies having an influenza vaccination. Patient is crying in the room. On exam, no conjunctival pallor, in severe distress, tachycardic, soft non-tender post gravid abdomen, no active vaginal bleeding or hemorrhage. In the ED course, patient was given iohexol 77 ml IV and lactated ringers 1000 mls IV. All other abnormal lab results are not pertinent to current cc. An EKG at 15:47 reveals 95 BPM with normal sinus rhythm, nml axis, nml intervals. No STEMI. No acute changes. Low voltage in lead III. No change from prior EKG. Chest/Thorax CTA IMPRESSION: NO PULMONARY ARTERIAL FILLING DEFECT TO SUGGEST PULMONARY EMBOLISM. At 18:00, patient is feeling better, SOB is improved. Patient will be discharged with a diagnosis of dyspnea and SOB. Follwo up with PCP in 2-3 days. - Diagnoses Provider Diagnoses: Dyspnea, Shortness of breath Discharge ED - Sign-Out/Discharge Documenting (check all that apply): Patient Departure - Discharge - Discharge Plan Condition: Stable Disposition: HOME Patient Education Materials: Dyspnea (ED), Shortness of Breath (ED) Referrals: Lennie MCCLAIN,Neeta Vizcarra [Primary Care Provider] - Additional Instructions: Follow up with your primary care provider in 2-3 days. Return to the Emergency Department for changing or worsening symptoms. - Attestation Statements Document Initiated by Scribe: Yes Documenting Scribe: Nadira Peng Provider For Whom Scribe is Documenting (Include Credential): Amol Johnson MD Scribe Attestation: Nadira Kay, scribed for Amol Johnson MD on 06/11/19 at 1855. Status of Scribe Document: Ready
[2019-06-11] MEDS ORDERED: Iohexol 300* (CONTRAST) 10 ML SDV IV ONE (16:00)
[2019-06-11 16:15] LABS: ABS Eosinophils 0.2 10^3/ul (0-0.6); ABS Lymphocytes 1.3 10^3/ul (1.0-4.8); ABS Monocytes 0.6 10^3/ul (0-0.8); ABS Neutrophils 5.5 10^3/ul (1.5-7.7); Eosinophil % 2.3 %; Hematocrit 25 % (35-47); Hemoglobin 8.7 g/dL (12.0-16.0); Lymphocyte % 16.8 %; Mean Corpuscular HGB Conc 34 g/dL (31-36); Mean Corpuscular Hemoglobin 32 pg (27-31); Mean Corpuscular Volume 92 fL (80-97); Mean Platelet Volume 8.3 fL (7.4-10.4); Platelet Count 211 10^3/uL (150-450); Red Blood Count 2.76 10^6 /uL (3.70-4.87); Red Cell Distribution Width 13 % (10-15); White Blood Count 7.5 10^3/uL (3.5-10.8)
[2019-06-11 16:23] LABS: Activated Partial Thrombo Time 28.7 seconds (26.0-38.0); INR 0.97 (0.82-1.09)
[2019-06-11 16:31] LABS: Troponin I 0.01 ng/mL (<0.04)
[2019-06-11 16:36] LABS: BUN/Creatinine Ratio 15.8 (8-20); Calcium 8.7 mg/dL (8.6-10.3); EGFR African American 156.4 (>60); EGFR Non-African American 129.2 (>60); Potassium 3.5 mmol/L (3.5-5.0)
[2019-06-11] MEDS ORDERED: Iohexol 350* (CONTRAST) 500 ML MDV IV ONE (16:50)
[2019-06-11] MEDS ORDERED: Lactated Ringers 1000 ML Bag* 1,000 ML IV SCH (19:00)
[2019-06-11 19:18] VITALS: BP 126/91
== END 2019-06-11 19:17 | disposition home or self-care (01) ==
LOC: ED 15:26
DX: R06.02 Shortness of breath (principal); R06.00 Dyspnea, unspecified; Z90.89 Acquired absence of other organs
CPT/HCPCS: 36415; 71275; 80048; 82803; 84484; 85025; 85610; 85730; 93005; 96360; 99283; Q9967

== ENCOUNTER 2019-09-21 18:08 | Emergency (ER) | payer BC, OTHER ==
--- OUTSIDE RECORDS SUMMARY | 2019-09-21 18:17 | XMS REPORT | Continuity of Care Document ---
:1995 External Reference #:[id number] Author Name Frederic Quarles M.D. (transmitted by agent of provider Germaine Garnett) Address [address], [place] [address] Care Team Providers Name Role Phone Neeta Hogue NP-C - Family Care Team Information Table Keeper [phone] Problems Active Problems Provider Date Neck pain Frederic Quarles M.D. Onset: 09/18/2019 Skin sensation disturbance Frederic Quarles M.D. 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 Social History Type Date Description Comments Sex Unknown Tobacco Use Start: Unknown Never Smoked Cigarettes Smoking Status Reviewed: 09/18/19 Never Smoked Cigarettes ETOH Use Occasionally consumes not during alcohol Tobacco Use Start: Unknown Patient has never smoked Recreational Drug Use Denies Drug Use Exercise Type/Frequency Exercises regularly Allergies, Adverse Reactions, Alerts Description No Known Drug Allergies Medications Active Medications SIG Qnty Indications Ordering Provider Date PNV Plus once a day Unknown Multivitamin + Dha 27-1&312mg Misc Immunizations Description No Information Available Vital Signs Date Vital Result Comment 09/18/2019 8:28am Height 71 inches 5'11" Weight 184.00 lb Heart Rate 84 /min BP Systolic 126 mmHg BP Diastolic 82 mmHg BMI (Body Mass Index) 25.7 kg/m2 02/09/2019 9:08am Height 71 inches 5'11" Weight 203.00 lb Heart Rate 108 /min BP Systolic 124 mmHg BP Diastolic 78 mmHg BMI (Body Mass Index) 28.3 kg/m2 Results Description No Information Available Procedures Description No Information Available Medical Devices Description No Information Available Encounters Description No Information Available Assessments Date Code Description Provider 09/18/2019 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 09/18/2019 R20.2 Paresthesia of skin Frederic Quarles M.D. 09/18/2019 M54.2 Cervicalgia Frederic Quarles M.D. Plan of Treatment Future Appointment(s):02/12/2020 8:00 am - Frederic Quarles M.D. at [facility]09/18/2019 - Frederic Quarles M.D.G51.0 Cosby's palsyNew Xrays:MRI Brain W/Wo, Ordered: 09/18/19MRI Cervical Spine W/Wo, Ordered : 09/18/19Follow up:Follow up in 3 monthsRecommendations:Call me 1 week after the MRI Call me 1 week after the nerve conduction studies.R20.2 Paresthesia of skinM54.2 Cervicalgia Functional Status Description No Information Available Mental Status Description No Information Available Referrals Description No Information Available
[2019-09-21 18:19] VITALS: BP 144/98
--- NOTE | 2019-09-21 18:58 | UC ---
Cardiac HPI - HPI Summary HPI Summary: 24-year-old woman comes in with a chief complaint of left chest pain. Started about a week and half ago with some pain in her left shoulder. Is gradually spread and it moved to her left neck and her left chest. Sometimes her chest feels very tight and she feels short of breath. Denies any calf pain or swelling. No history of DVT not a smoker not on control pills. Today the shortness breath is worse with activity. No fevers no chills. Does have a cough but without any sputum production. Patient gave 3 months ago. - History of Current Complaint Chief Complaint: UCChestPain Stated Complaint: SHOULDER PAIN, CHEST TIGHTNESS Time Seen by Provider: 09/21/19 18:40 Hx Last Menstrual Period: one year ago Pain Intensity: 1 - Allergy/Home Medications Allergies/Adverse Reactions: Allergies Allergy/AdvReac Type Severity Reaction Status Date / Time No Known Allergies Allergy Verified 09/21/19 18:19 Home Medications: Home Medications NK [No Home Medications Reported] 09/21/19 [History Confirmed 09/21/19] PMH/Surg Hx/FS Hx/Imm Hx Previously Healthy: Yes - Surgical History Surgical History: Yes Surgery Procedure, Year, and Place: APPENDECTOMY - Family History Known Family History: Positive: Diabetes Family History: FHx of [place] - Social History Alcohol Use: None Substance Use Type: None Smoking Status (MU): Never Smoked Tobacco - Immunization History Most Recent Influenza Vaccination: n/a Most Recent Pneumonia Vaccination: n/a Review of Systems All Other Systems Reviewed And Are Negative: Yes Constitutional: Positive: Other - SEE HPI Skin: Positive: Negative Eyes: Positive: Negative ENT: Positive: Negative Respiratory: Positive: Shortness Of Breath, Other - SEE HPI Cardiovascular: Positive: Chest Pain - SEE HPI Gastrointestinal: Positive: Negative Motor: Positive: Negative Neurovascular: Positive: Negative Musculoskeletal: Positive: Negative Neurological/Mental Status: Positive: Negative Psychological: Positive: Negative Is Patient Immunocompromised?: No Physical Exam Triage Information Reviewed: Yes Appearance: Well-Appearing, No Pain Distress, Well-Nourished Vital Signs: Initial Vital Signs Temp 97.7 F 09/21/19 18:14 Pulse 107 09/21/19 18:14 Resp 16 09/21/19 18:14 BP 144/98 09/21/19 18:14 Pulse Ox 100 09/21/19 18:14 Vital Signs Reviewed: Yes Eye Exam: Normal Eyes: Positive: Conjunctiva Clear Neck: Positive: Supple Respiratory: Positive: Lungs clear, Normal breath sounds, No respiratory distress Cardiovascular: Positive: RRR Musculoskeletal: Positive: Strength Intact, ROM Intact, No Edema - NO CALF TENDERNESS Neurological: Positive: Alert Psychological: Positive: Age Appropriate Behavior Skin Exam: Normal Diagnostics - EKG Cardiac Rate: NL - AT 1812 Cardiac Rhythm: Sinus: Normal - 96BPM Ectopy: None ST Segment: Normal - Assessment/Plan Course Of Treatment: I discussed the EKG with the patient and her mother. I do not see any ischemic changes. Because the patient is having chest pain and shortness of breath I recommended further evaluation in the emergency department. - Clinical Impression Provider Diagnosis: Chest pain Discharge ED - Sign-Out/Discharge Documenting (check all that apply): Patient Departure All imaging exams completed and their final reports reviewed: No Studies - Discharge Plan Condition: Stable Disposition: HOME-RECOMMEND TO ED Patient Education Materials: Chest Pain (ED) Referrals: Lennie MCCLAIN,Neeta Vizcarra [Primary Care Provider] - Additional Instructions: GO DIRECTLY TO THE EMERGENCY DEPARTMENT FOR FURTHER EVALUATION OF YOUR CHEST PAIN. - Billing Disposition and Condition Condition: STABLE Disposition: Home-Recommend to ED
== END 2019-09-21 19:05 | disposition home health service (06) ==
LOC: UCEAST 18:08
DX: R07.9 Chest pain, unspecified (principal); R06.02 Shortness of breath
CPT/HCPCS: 99212; G0463

== ENCOUNTER 2019-09-21 19:19 | Emergency (ER) | payer BC, OTHER ==
[2019-09-21 19:30] VITALS: BP 149/107
== END 2019-09-21 20:02 | disposition left against medical advice (07) ==
LOC: ED 19:19
DX: R07.9 Chest pain, unspecified (principal); Z53.21 Procedure and treatment not carried out due to patient leaving prior to being seen by health care provider
CPT/HCPCS: 93005; 99282

== ENCOUNTER 2019-09-23 08:04 | Emergency (ER) | payer OTHER, BC ==
--- NOTE | 2019-09-23 08:55 | ED ---
HPI Chest Pain - HPI Summary HPI Summary: Left shoulder, chest pain, neck pain, shortness of breath no days. Patient seen at [facility] 2 days ago for same symptoms and was referred to the ER. Patient states the wait in the ER was too long so she went home. Patient does note she was lifting a heavy car seat last week with left arm. Patient notes pain is intermittent and feels like gas pain occasionally. Patient denies recent illness, fever, cough, abdominal pain, vomiting. Patient is 3 months post . Denies swelling in. Is not on oral contraceptive. Patient notes pain is worse with moving her left shoulder and deep inspiration. Symptoms are moderate in severity. - History of Current Complaint Chief Complaint: EDChestWallPain Time Seen by Provider: 09/23/19 08:38 Hx Obtained From: Patient Hx Last Menstrual Period: one year ago Pain Intensity: 0 - Allergy/Home Medications Allergies/Adverse Reactions: Allergies Allergy/AdvReac Type Severity Reaction Status Date / Time No Known Allergies Allergy Verified 09/23/19 08:13 Home Medications: Home Medications NK [No Home Medications Reported] 09/23/19 [History Confirmed 09/23/19] PMH/Surg Hx/FS Hx/Imm Hx Previously Healthy: Yes Endocrine/Hematology History: Reports: Hx Diabetes - gestational, but now cleared Cardiovascular History: Denies: Hx Hypercholesterolemia, Hx Hypertension History: Denies: Hx Renal Disease Sensory History: Denies: Hx Legally Blind, Hx Deafness Opthamlomology History: Denies: Hx Legally Blind - Surgical History Surgery Procedure, Year, and Place: APPENDECTOMY Infectious Disease History: No Infectious Disease History: Denies: Traveled Outside the [place] in Last 30 Days - Family History Known Family History: Positive: Diabetes, Non-Contributory Family History: FHx of [place] - Social History Occupation: Employed Full-time Lives: With Family Alcohol Use: None Hx Substance Use: No Substance Use Type: Reports: None Hx Tobacco Use: No Smoking Status (MU): Never Smoked Tobacco Review of Systems Constitutional: Negative Negative: Fever ENT: Negative Positive: Chest Pain Positive: Shortness Of Breath. Negative: Cough Gastrointestinal: Negative Genitourinary: Negative Positive: Other - left shoulder pain Neurological/Mental Status: Negative All Other Systems Reviewed And Are Negative: Yes Physical Exam Triage Information Reviewed: Yes Vital Signs On Initial Exam: Initial Vitals Temp Pulse Resp BP Pulse Ox 98.5 F 96 18 127/85 100 09/23/19 08:05 09/23/19 08:05 09/23/19 08:05 09/23/19 08:05 09/23/19 08:05 Vital Signs Reviewed: Yes Appearance: Positive: Well-Appearing - Pt. sitting on back in NAD. Mother present. Skin: Positive: Warm, Dry Head/Face: Positive: Normal Head/Face Inspection Eyes: Positive: Normal, EOMI ENT: Positive: Pharynx normal, TMs normal Neck: Positive: Supple Respiratory/Lung Sounds: Positive: Clear to Auscultation, Breath Sounds Present. Negative: Rhonchi, Stridor, Wheezes Cardiovascular: Positive: Normal, RRR. Negative: Murmur Abdomen Description: Positive: Nontender, Soft Musculoskeletal: Positive: Normal, Strength/ROM Intact, Other - Reproducible pain to left posterior shoulder Neurological: Positive: Normal, CN Intact II-III Psychiatric: Positive: Affect/Mood Appropriate Procedures - Sedation Patient Received Moderate/Deep Sedation with Procedure: No Diagnostics - Vital Signs Vital Signs Temp Pulse Resp BP Pulse Ox 09/23/19 08:05 98.5 F 96 18 127/85 100 - Laboratory Result Diagrams: 09/23/19 09:23 09/23/19 09:23 Lab Statement: Any lab studies that have been ordered have been reviewed, and results considered in the medical decision making process. Chest Pain Course/Dx - Course Course Of Treatment: Patient was 7 days of chest x-ray, shoulder pain, shortness of breath. She is afebrile in the ER. Heart rate is mildly elevated. Oxygen saturation 98% on room air which is normal. ECG done at 0806 shows a sinus tachycardia of 103bpm, normal axis, appropriate intervals. Chest x-ray negative for acute findings, reading per radiology. Labs unremarkable including normal TSH, negative d-dimer and troponin. Suspect pain is likely muscular given the reproducible pain. Patient also notes feeling very gassy and a history of acid reflux and use to take omeprazole. Possible acid reflux/ course gastritis. Recommend [id number] Pepcid. Close follow-up with PCP and return to the ER symptoms change or worsen. Patient understands and agrees with plan. - Chest Pain Differential Diagnosis/HQI/PQRI: Chest Wall, GI Disease, Lower Respiratory Infection, Pulmonary Embolism - Diagnoses Provider Diagnoses: Chest wall pain Discharge ED - Sign-Out/Discharge Documenting (check all that apply): Patient Departure - Discharge Plan Condition: Good Disposition: HOME Patient Education Materials: Chest Wall Pain (ED), Muscle Strain (ED) Referrals: Lennie MCCLAIN,Neeta Vizcarra [Primary Care Provider] - Additional Instructions: Schedule a follow up appointment with PCP within on week for further evaluation if symptoms persist Tylenol or Motrin for pain as directed Apply warm compresses Gentle stretching Return to ER if symptoms change or worsen - Billing Disposition and Condition Condition: GOOD Disposition: Home
[2019-09-23 09:31] LABS: ABS Basophils 0.1 10^3/ul (0-0.2); ABS Eosinophils 0.2 10^3/ul (0-0.6); ABS Lymphocytes 1.4 10^3/ul (1.0-4.8); ABS Monocytes 0.5 10^3/ul (0-0.8); ABS Neutrophils 3.8 10^3/ul (1.5-7.7); Eosinophil % 2.5 %; Hematocrit 39 % (35-47); Hemoglobin 12.7 g/dL (12.0-16.0); Lymphocyte % 23.6 %; Mean Corpuscular HGB Conc 33 g/dL (31-36); Mean Corpuscular Hemoglobin 29 pg (27-31); Mean Corpuscular Volume 87 fL (80-97); Mean Platelet Volume 7.4 fL (7.4-10.4); Platelet Count 275 10^3/uL (150-450); Red Blood Count 4.46 10^6 /uL (3.70-4.87); Red Cell Distribution Width 17 % (10-15); White Blood Count 5.9 10^3/uL (3.5-10.8)
[2019-09-23 09:50] LABS: ALT 12 U/L (7-52); AST 16 U/L (13-39); Albumin 4.3 g/dL (3.2-5.2); Albumin/Globulin Ratio 1.7 (1-3); Alkaline Phosphatase 64 U/L (34-104); Anion Gap 8 mmol/L (2-11); BUN/Creatinine Ratio 26.7 (8-20); Blood Urea Nitrogen 16 mg/dL (6-24); CO2 Carbon Dioxide 24 mmol/L (22-32); Calcium 9.3 mg/dL (8.6-10.3); Chloride 105 mmol/L (101-111); EGFR African American 147.4 (>60); EGFR Non-African American 121.8 (>60); Globulin 2.6 g/dL (2-4); Glucose 83 mg/dL (70-100); Potassium 4.3 mmol/L (3.5-5.0); Sodium 137 mmol/L (135-145); Total Protein 6.9 g/dL (6.4-8.9)
[2019-09-23 09:55] LABS: HCG Pregnancy < 0.60 mIU/mL
[2019-09-23 10:20] LABS: TSH (Thyroid Stimulating Horm) 2.71 mcIU/mL (0.34-5.60)
[2019-09-23 11:08] VITALS: BP 124/87
== END 2019-09-23 11:07 | disposition home or self-care (01) ==
LOC: ED 08:04
DX: R07.89 Other chest pain (principal); M25.512 Pain in left shoulder; R06.02 Shortness of breath; R00.0 Tachycardia, unspecified
CPT/HCPCS: 36415; 71045; 80053; 84443; 84484; 84702; 85025; 85379; 93005; 99282